=== PATIENT | male | born 1960 | race Caucasian/White ===

== ENCOUNTER 2020-03-06 09:43 | Outpatient (AMBR) | payer MEDICAID, SELFPAY ==
--- NOTE | 2020-02-24 14:06 | PT.ODAYNRPT ---
PT Outpatient Daily Note Date of Service: 02/24/20 OP Daily Note Visit Reasons: Cerebrovascular accident Outpatient Physical Therapy Treatment Date: 02/24/20 Subjective: Not much change since last visit. He states he is doing HEP of AAROM of L UE and moving the L ankle along with bridging. He is wearing L AFO. Objective: See F/S for therex Assessment: Pt has difficulty locking L knee into extension and may benefit from knee lockout brace to stretch HS and stand. More difficulty bridging today, likely due to not doing it much since last visit. Very limited L UE movement with slight FF and abd of shoulder. No active ROM of hand. Plan: Continue per POC Length of Time (minutes) of Treatment: 30 Minutes Office Procedures PT Procedures PT Date of Service: 02/24/20 Therapeutic Exercise 30 minutes: Yes CVA/TIA Most Recent Cardiac Tests: Chest X-Ray 10/08/19
--- NOTE | 2020-02-29 14:15 | PTNOTE_ITS ---
PT Outpatient Daily Note Date of Service: 02/29/20 OP Daily Note Visit Reasons: Cerebrovascular accident Outpatient Physical Therapy Treatment Date: 02/29/20 Subjective: Not much change since last visit. He states he is doing HEP. He is wearing L AFO. Objective: See F/S for therex Assessment: Pt is unable to lock L knee into extension and may benefit from knee lockout brace to stretch HS and stand. Very limited L UE movement with slight FF and abd of shoulder. No active ROM of hand and he would benefit from hand sp lint to hold digits into extension. He can stand and WB on R LE but not the L and requires mod assist to remain standing and grab bar. Plan: Continue per POC Length of Time (minutes) of Treatment: 30 Minutes Office Procedures PT Procedures PT Date of Service: 02/24/20 Therapeutic Exercise 30 minutes: Yes PT Procedures PT Date of Service: 02/29/20 Therapeutic Exercise 30 minutes: Yes CVA/TIA Most Recent Cardiac Tests: Chest X-Ray 10/08/19
--- NOTE | 2020-03-02 10:45 | PTNOTE_ITS ---
PT Outpatient Daily Note Date of Service: 03/02/20 OP Daily Note Visit Reasons: Cerebrovascular accident Outpatient Physical Therapy Treatment Date: 03/02/20 Subjective: Not much change since last visit. He states he is doing HEP. He is wearing L AFO. Objective: See F/S for therex Assessment: Pt is unable to lock L knee into extension and may benefit from knee lockout brace to stretch HS and stand. Very limited L UE movement with slight FF and abd of shoulder. No active ROM of hand and he would benefit from hand sp lint to hold digits into extension. He can stand and WB on R LE but not the L and requires mod assist to remain standing and grab bar. Plan: Continue per POC Length of Time (minutes) of Treatment: 30 Minutes Office Procedures PT Procedures PT Date of Service: 02/24/20 Therapeutic Exercise 30 minutes: Yes PT Procedures PT Date of Service: 03/02/20 Therapeutic Exercise 30 minutes: Yes PT Procedures PT Date of Service: 02/29/20 Therapeutic Exercise 30 minutes: Yes CVA/TIA Most Recent Cardiac Tests: Chest X-Ray 10/08/19
--- NOTE | 2020-03-06 19:42 | PTNOTE_ITS ---
PT Outpatient Daily Note Date of Service: 03/06/20 OP Daily Note Visit Reasons: Cerebrovascular accident Outpatient Physical Therapy Treatment Date: 03/06/20 Subjective: Not much change since last visit. He states he is doing HEP. He is wearing L AFO. Objective: See F/S for therex Assessment: Pt is unable to lock L knee into extension and may benefit from knee lockout brace to stretch HS and stand. Very limited L UE movement with slight FF and abd of shoulder. No active ROM of hand and he would benefit from hand sp lint to hold digits into extension. He can stand and WB on R LE but not the L and requires mod assist to remain standing and grab bar. Slow progress with functional goals. Plan: Continue per POC Length of Time (minutes) of Treatment: 30 Minutes Office Procedures PT Procedures PT Date of Service: 02/24/20 Therapeutic Exercise 30 minutes: Yes PT Procedures PT Date of Service: 03/02/20 Therapeutic Exercise 30 minutes: Yes PT Procedures PT Date of Service: 03/06/20 Therapeutic Exercise 30 minutes: Yes PT Procedures PT Date of Service: 02/29/20 Therapeutic Exercise 30 minutes: Yes CVA/TIA Most Recent Cardiac Tests: Chest X-Ray 10/08/19
--- NOTE | 2020-03-08 14:20 | PTNOTE_ITS ---
PT Outpatient Daily Note Date of Service: 03/08/20 OP Daily Note Visit Reasons: Cerebrovascular accident Outpatient Physical Therapy Treatment Date: 03/08/20 Subjective: Not much change since last visit. He states he is doing HEP. He is wearing L AFO. Objective: See F/S for therex Assessment: Pt is unable to lock L knee into extension and may benefit from knee lockout brace to stretch HS and stand. Very limited L UE movement with slight FF and abd of shoulder. No active ROM of hand and he would benefit from hand spl int to hold digits into extension. He can stand and WB on R LE but not the L and requires mod assist to remain standing and grab bar. Slow progress with functional goals but he was able to lift the L LE up better today transferring sit to supine. Plan: Continue per POC Length of Time (minutes) of Treatment: 30 Minutes Office Procedures PT Procedures PT Date of Service: 02/24/20 Therapeutic Exercise 30 minutes: Yes PT Procedures PT Date of Service: 03/02/20 Therapeutic Exercise 30 minutes: Yes PT Procedures PT Date of Service: 03/06/20 Therapeutic Exercise 30 minutes: Yes PT Procedures PT Date of Service: 03/08/20 Therapeutic Exercise 30 minutes: Yes PT Procedures PT Date of Service: 02/29/20 Therapeutic Exercise 30 minutes: Yes CVA/TIA Most Recent Cardiac Tests: Chest X-Ray 10/08/19
--- NOTE | 2020-03-13 10:39 | PT.ODAYNRPT ---
PT Outpatient Daily Note Date of Service: 03/13/20 OP Daily Note Visit Reasons: Cerebrovascular accident Outpatient Physical Therapy Treatment Date: 03/13/20 Subjective: Pt brings in knee extension lockout brace to try and L hand splint. He states he is doing HEP. He is wearing L AFO Objective: See F/S for therex Assessment: Pt is unable to lock L knee into extension and with knee lockout brace he can partially shift to L. Very limited L UE movement with slight FF and abd of shoulder. He is wearing hand splint to hold digits into extension. Slow progress with functional goals but he is able to lift the L LE up better transferring sit to supine. Plan: Continue per POC Length of Time (minutes) of Treatment: 30 Minutes Office Procedures PT Procedures PT Date of Service: 02/24/20 Therapeutic Exercise 30 minutes: Yes PT Procedures PT Date of Service: 03/02/20 Therapeutic Exercise 30 minutes: Yes PT Procedures PT Date of Service: 03/06/20 Therapeutic Exercise 30 minutes: Yes PT Procedures PT Date of Service: 03/08/20 Therapeutic Exercise 30 minutes: Yes PT Procedures PT Date of Service: 02/29/20 Therapeutic Exercise 30 minutes: Yes PT Procedures PT Date of Service: 03/13/20 Therapeutic Exercise 30 minutes: Yes CVA/TIA Most Recent Cardiac Tests: Chest X-Ray 10/08/19
--- NOTE | 2020-03-15 18:31 | PT.ODS1RPT ---
PT OP Progress/Discharge Note Date of Service: 03/15/20 Progress Note/DC Note Progress Note/Discharge Note: Progress Note Patient Information Visit Reasons: Cerebrovascular accident Medical Diagnosis: CVA with L hemiplegia Service Continue Service or Discharge: Continue Service Certification Date Certification Dates: 03/15/18 to 05/15/20 Status Subjective: Pt brings in knee extension lockout brace to try and L hand splint. He states he is doing HEP. He is wearing L AFO and wants to continued therapy in order to transfer and stand better. Objective: Transfer: Sit to stand with min/modAx1 Stand pivot with modAx1 to W/C Slide board from W/C to mat table with Maryann L knee ArOM: Extension:-60 deg Flexion: 80 deg with strap Hip strength: Adduction: 3+/5 Assessment: Pt has attended 09/02 Rx visits and made fair progress with therapy goals. He is able to lift L LE into bed with the R with Maryann. Pt is unable to lock L knee into extension and with knee lockout brace he can partially shift to L that has improved with knee extension lockout brace. Pt was able to pivot in standing with FWW and modAx2 to W/C. He requires modA to remain standing and avoid falling to the L since L UE doesn't help much. Very limited L UE movement with slight FF and abd of shoulder. He is wearing hand splint to hold digits into extension. Pt would benefit from continued therapy in order to improve transfers into and out of bed and from sit to stand and to W/C. Plan: Request additional visits x8 and extend POC for 2 months Office Procedures PT Procedures PT Date of Service: 02/24/20 Therapeutic Exercise 30 minutes: Yes PT Procedures PT Date of Service: 03/02/20 Therapeutic Exercise 30 minutes: Yes PT Procedures PT Date of Service: 03/06/20 Therapeutic Exercise 30 minutes: Yes PT Procedures PT Date of Service: 03/08/20 Therapeutic Exercise 30 minutes: Yes PT Procedures PT Date of Service: 03/15/20 Therapeutic Exercise 30 minutes: Yes PT Procedures PT Date of Service: 02/29/20 Therapeutic Exercise 30 minutes: Yes PT Procedures PT Date of Service: 03/13/20 Therapeutic Exercise 30 minutes: Yes CVA/TIA Most Recent Cardiac Tests: Chest X-Ray 10/08/19
== END 2020-03-21 23:59 | disposition home or self-care (01) ==
PROVIDERS: PCP Internal Medicine; Referring Provider Internal Medicine; Visit Provider Internal Medicine
DX: I69.354 Hemiplegia and hemiparesis following cerebral infarction affecting left non-dominant side (principal); M25.512 Pain in left shoulder; I10 Essential (primary) hypertension
CPT/HCPCS: 97110

== ENCOUNTER 2020-05-24 10:19 | Outpatient (AMBR) | payer MEDICAID, SELFPAY ==
--- NOTE | 2020-05-24 18:24 | PTNOTE_ITS ---
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 He states this will help him with community mobility as he is unable to ambulate following CVA. He is able to financial planning assistant parallel bars with L knee lock-out brace and modA but dragging the L foot. He is unable to actively move the L shoulder or UE or trashman the L hand. Caregiver is present and states she uses slide board to transfer pt. PMH: HTN, vitiligo, high cholesterol, OA B knees Pt goal: to get a power W/C to be somewhat mobile Objective See W/C evaluation Assessment Pt presentation consistent with referring Dx. Pt has L UE flaccidity and hemiplegia of L LE. Pt is high fall risk in standing and requires assist to not lose balance to the L and would benefit from a power W/C to improve HH and community mobility. He depends on caregiver to push manual W/C as he is unable due to L UE hemiplegia so a power W/C would reduce dependence on caregiver. He has cognitive and R sided coordination to control the chair. PT recommends he get a power W/C. Short Term and Nursing Home Goals Follow up with provider Treatment Plan Eval and D/C Certification Dates: 05/24/20 to 06/23/20 Office Procedures PT Procedures PT Date of Service: 05/24/20 OP PT Eval Mod Complex 30 minutes: Yes
== END 2020-06-21 23:59 | disposition home or self-care (01) ==
PROVIDERS: PCP Physician Assistant; Referring Provider Physician Assistant; Visit Provider Physician Assistant
DX: Z02.79 Encounter for issue of other medical certificate (principal); I10 Essential (primary) hypertension
CPT/HCPCS: 97162

== ENCOUNTER 2020-07-13 10:33 | Outpatient (AMBR) | payer MEDICAID, SELFPAY ==
--- NOTE | 2020-07-13 10:44 | PT.OIERPT ---
PT OP Initial Eval Patient Information Visit Reasons: cva Medical Diagnosis: I69.354 Treatment Dx #1: same Start of Care: 07/13/20 Date of Onset: 09/14/20 Initial Assessment Subjective Pt is 60 yr old male s/p CVA about last August presents to therapy in W/C. He was taken to [facility] and then to [facility] rehab for 2 weeks. He is unable to actively move the L shoulder or UE or conventional underwriter the L hand. Caregiver is present and states she uses slide board to transfer pt. Pt had gallbladder removed and left hospital June 22 and has been pretty inactive since then. PMH: HTN, vitiligo, high cholesterol, OA B knees Imaging: in EMR Pt goal: regain my body strength and walk with a cane or walker, be somewhat mobile Objective L knee AROM: PROM: Extension: -40 deg full Flexion: 90 deg 100 deg DF: -3 deg PF: 35 deg slowly Shoulder: FF: 40 deg L hip AROM: Flexion: 90 deg Strength is 3-/5 in all planes of motion of L LE and 2/5 L UE. Transfers: W/C to mat table with slide board and Maryann Sit<>stand with FWW and min/modA to avoid falling to R/L side Sit<>supine: Maryann for LE management Clonus: negative of L foot Tone assessment: hypotonic L UE/LE Assessment Pt presentation consistent with referring Dx. Pt has L UE flaccidity and hemiplegia of L LE. Pt is wearing an AFO and is able to stand with modA and is high fall risk and requires assist to not lose balance to the L. He has poor L LE extension and trunk extension strength which may limit standing and gait tolerance. Pt requires skilled therapy to learn HEP and to improve strength with transfers and has fair/poor rehab potential Short Term and Assisted Goals 1. Independent with HEP 2. Pt will transfer from supine to sit using logrolling technique with modified independence 3. Pt will transfer from sit to stand with hand support with minAx1 4. Improved L LE AROM into extension to -20 deg and flexion to 70 deg Treatment Plan 1. Manual therapy 2. Therex 3. Modalities as indicated, moist heat, ice, estim 4. neuromuscular reeducation Frequency and Duration 2x a week for 6 weeks Certification Dates: 07/13/20 to 10/11/20 Office Procedures PT Procedures PT Date of Service: 07/13/20 OP PT Eval Mod Complex 30 minutes: Yes
== END 2020-07-22 23:59 | disposition home or self-care (01) ==
PROVIDERS: PCP Physician Assistant; Referring Provider Physician Assistant; Visit Provider Physician Assistant
DX: G81.04 Flaccid hemiplegia affecting left nondominant side (principal); I10 Essential (primary) hypertension
CPT/HCPCS: 97162

== ENCOUNTER 2020-12-18 10:27 | Outpatient (AMBR) | payer MEDICAID, SELFPAY ==
--- NOTE | 2020-11-29 15:49 | PT.ODS1RPT ---
PT OP Progress/Discharge Note Date of Service: 11/29/20 Progress Note/DC Note Progress Note/Discharge Note: Progress Note Patient Information Visit Reasons: cva Service Continue Service or Discharge: Continue Service Status Subjective: Pt returns to therapy after waiting for insurance authorization since September and wants to walk with hemiwalker and strengthen LE's. Objective: See F/S for therex Assessment: Pt is advancing L LE better with less adduction than when he first started therapy. He can ambulate with hemiwalker in R hand with minAx1 for balance for about 20'. Plan: Continue per POC and extend POC dates from 10/11/20 to 01/09/21 Office Procedures PT Procedures PT Date of Service: 11/29/20 [facility] Initial 30 minutes: Yes
--- NOTE | 2020-12-05 18:46 | PT.ODAYNRPT ---
PT Outpatient Daily Note Date of Service: 12/05/20 OP Daily Note Visit Reasons: cva Outpatient Physical Therapy Treatment Date: 12/05/20 Subjective: Pt wants to walk with hemiwalker and strengthen LE's. Objective: See F/S for therex Assessment: Pt is advancing L LE better with less adduction than when he first started therapy. He can ambulate with hemiwalker in R hand with minAx1 for balance for about 20'. Plan: Continue per POC Length of Time (minutes) of Treatment: 30 Minutes Office Procedures PT Procedures PT Date of Service: 11/29/20 [facility] Initial 30 minutes: Yes PT Procedures PT Date of Service: 12/05/20 [facility] Initial 30 minutes: Yes
--- NOTE | 2020-12-18 12:04 | PT.ODAYNRPT ---
PT Outpatient Daily Note Date of Service: 12/18/20 OP Daily Note Visit Reasons: cva Outpatient Physical Therapy Treatment Date: 12/18/20 Subjective: pt came in with care support representative, it was her first time with him. pt came in with knee brace. his LUE in sling. Objective: see flow sheet. Assessment: pt is max A for SPT WC<>sci fit. pt's L foot not able to stay on the pedal without the straps. pt fatigued after STS. care support representative assisted with standing exercises. pt fatigued with side steps and only able to do 2 laps. needs max cuing for his foot placement. pt does not weight onto the LLE. with cuing he can weight shift. not able to stand tall and extend knees as they want to buckle. Plan: continue POC per PT. Length of Time (minutes) of Treatment: 30 Minutes Office Procedures PT Procedures PT Date of Service: 11/29/20 [facility] Initial 30 minutes: Yes PT Procedures PT Date of Service: 12/05/20 [facility] Initial 30 minutes: Yes PT Procedures PT Date of Service: 12/18/20 Therapeutic Exercise 30 minutes: Yes
== END 2020-12-20 23:59 | disposition home or self-care (01) ==
PROVIDERS: PCP Physician Assistant; Referring Provider Physician Assistant; Visit Provider Physician Assistant
DX: G81.04 Flaccid hemiplegia affecting left nondominant side (principal); I10 Essential (primary) hypertension; Z99.3 Dependence on wheelchair; I69.354 Hemiplegia and hemiparesis following cerebral infarction affecting left non-dominant side

== ENCOUNTER 2021-01-17 10:34 | Outpatient (AMBR) | payer MEDICAID, SELFPAY ==
--- NOTE | 2020-12-26 18:58 | PT.ODAYNRPT ---
PT Outpatient Daily Note Date of Service: 12/26/20 OP Daily Note Visit Reasons: cva Outpatient Physical Therapy Treatment Date: 12/26/20 Subjective: Same as last visit Objective: See F/S for therex Assessment: Pt able to ambulate with hemiwalker in R hand but falls fwd and backward with turning. Plan: Continue per POC Length of Time (minutes) of Treatment: 30 Minutes Office Procedures PT Procedures PT Date of Service: 12/26/20 [facility] Initial 30 minutes: Yes
--- NOTE | 2020-12-28 18:56 | PT.ODAYNRPT ---
PT Outpatient Daily Note Date of Service: 12/28/20 OP Daily Note Visit Reasons: cva Outpatient Physical Therapy Treatment Date: 12/28/20 Subjective: Same as last visit Objective: See F/S for therex Assessment: Pt able to ambulate with hemiwalker in R hand but falls fwd and backward with turning and requires modAx1 for standing balance. He is advancing the L LE better with less adduction than last time he did therapy. Plan: Continue per POC Length of Time (minutes) of Treatment: 30 Minutes Office Procedures PT Procedures PT Date of Service: 12/26/20 [facility] Initial 30 minutes: Yes PT Procedures PT Date of Service: 12/28/20 [facility] Initial 30 minutes: Yes
--- NOTE | 2021-01-01 14:44 | PT.ODAYNRPT ---
PT Outpatient Daily Note Date of Service: 01/01/21 OP Daily Note Visit Reasons: cva Outpatient Physical Therapy Treatment Date: 01/01/21 Subjective: He forgot his L AFO today Objective: See F/S for therex Assessment: Pt wasn't able to ambulate with hemiwalker today and lost balance to L but was caught by PT. Pt is high fall risk and requires mod/maxAx1 for standing balance. He is advancing the L LE better with less adduction when he wears AFO. Plan: Continue per POC Length of Time (minutes) of Treatment: 30 Minutes Office Procedures PT Procedures PT Date of Service: 12/26/20 [facility] Initial 30 minutes: Yes PT Procedures PT Date of Service: 12/28/20 [facility] Initial 30 minutes: Yes PT Procedures PT Date of Service: 01/01/21 [facility] Initial 30 minutes: Yes
--- NOTE | 2021-01-04 13:17 | PT.ODAYNRPT ---
PT Outpatient Daily Note Date of Service: 01/04/21 OP Daily Note Visit Reasons: cva Outpatient Physical Therapy Treatment Date: 01/04/21 Subjective: He brought his AFO today and wants to ambulate Objective: See F/S for therex Assessment: Pt was able to ambulate with hemiwalker today. Pt is high fall risk and requires mod/maxAx1 for standing balance. He is advancing the L LE better with less adduction when he wears AFO. He can ambulate sideways in the bars with hand support and modAx1 Plan: Continue per POC Length of Time (minutes) of Treatment: 30 Minutes Office Procedures PT Procedures PT Date of Service: 12/26/20 [facility] Initial 30 minutes: Yes PT Procedures PT Date of Service: 12/28/20 [facility] Initial 30 minutes: Yes PT Procedures PT Date of Service: 01/01/21 [facility] Initial 30 minutes: Yes PT Procedures PT Date of Service: 01/04/21 [facility] Initial 30 minutes: Yes
--- NOTE | 2021-01-09 13:30 | PT.ODAYNRPT ---
PT Outpatient Daily Note Date of Service: 01/09/21 OP Daily Note Visit Reasons: cva Outpatient Physical Therapy Treatment Date: 01/09/21 Subjective: He brought his AFO today and wants to ambulate Objective: See F/S for therex Assessment: Pt was able to ambulate with hemiwalker today. Pt is high fall risk and requires mod/maxAx1 for standing balance to not fall to the left. He is advancing the L LE better with less adduction when he wears AFO. He can ambulate sideways in the bars with hand support and modAx1 but doesn't trust the L LE and has low stance time. Plan: Continue per POC Length of Time (minutes) of Treatment: 30 Minutes Office Procedures PT Procedures PT Date of Service: 12/26/20 [facility] Initial 30 minutes: Yes PT Procedures PT Date of Service: 12/28/20 [facility] Initial 30 minutes: Yes PT Procedures PT Date of Service: 01/01/21 [facility] Initial 30 minutes: Yes PT Procedures PT Date of Service: 01/04/21 [facility] Initial 30 minutes: Yes PT Procedures PT Date of Service: 01/09/21 [facility] Initial 30 minutes: Yes
--- NOTE | 2021-01-11 14:02 | PT.ODAYNRPT ---
PT Outpatient Daily Note Date of Service: 01/11/21 OP Daily Note Visit Reasons: cva Outpatient Physical Therapy Treatment Date: 01/11/21 Subjective: He brought his AFO today and wants to ambulate Objective: See F/S for therex Assessment: Pt was able to ambulate with hemiwalker today. Pt is high fall risk and requires mod/maxAx1 for standing balance to not fall to the left after he stands. Once standing, he requires CGA/minAx1. He is advancing the L LE better with less adduction when he wears AFO. He can ambulate sideways in the bars with hand support and modAx1 but doesn't trust the L LE and has low stance time. Plan: Continue per POC Length of Time (minutes) of Treatment: 30 Minutes Office Procedures PT Procedures PT Date of Service: 12/26/20 [facility] Initial 30 minutes: Yes PT Procedures PT Date of Service: 12/28/20 [facility] Initial 30 minutes: Yes PT Procedures PT Date of Service: 01/01/21 [facility] Initial 30 minutes: Yes PT Procedures PT Date of Service: 01/04/21 [facility] Initial 30 minutes: Yes PT Procedures PT Date of Service: 01/09/21 [facility] Initial 30 minutes: Yes PT Procedures PT Date of Service: 01/11/21 Therapeutic Exercise 30 minutes: Yes
--- NOTE | 2021-01-17 18:39 | PT.ODAYNRPT ---
PT Outpatient Daily Note Date of Service: 01/17/21 OP Daily Note Visit Reasons: cva Outpatient Physical Therapy Treatment Date: 01/17/21 Subjective: He brought his AFO today and wants to ambulate Objective: See F/S for therex Assessment: Pt was able to ambulate with hemiwalker today. Pt is high fall risk and requires mod/maxAx1 for standing balance to not fall to the left after he stands. Once standing, he requires CGA/minAx1. He is advancing the L LE better with less adduction when he wears AFO. He can ambulate sideways in the bars with hand support and modAx1 but doesn't trust the L LE and has low stance time. Plan: Continue per POC Length of Time (minutes) of Treatment: 30 Minutes Office Procedures PT Procedures PT Date of Service: 12/26/20 [facility] Initial 30 minutes: Yes PT Procedures PT Date of Service: 01/17/21 [facility] Initial 30 minutes: Yes PT Procedures PT Date of Service: 12/28/20 [facility] Initial 30 minutes: Yes PT Procedures PT Date of Service: 01/01/21 [facility] Initial 30 minutes: Yes PT Procedures PT Date of Service: 01/04/21 [facility] Initial 30 minutes: Yes PT Procedures PT Date of Service: 01/09/21 [facility] Initial 30 minutes: Yes PT Procedures PT Date of Service: 01/11/21 [facility] Initial 30 minutes: Yes
== END 2021-01-19 23:59 | disposition home or self-care (01) ==
PROVIDERS: PCP Physician Assistant; Referring Provider Physician Assistant; Visit Provider Physician Assistant
DX: I69.354 Hemiplegia and hemiparesis following cerebral infarction affecting left non-dominant side (principal); I10 Essential (primary) hypertension

== ENCOUNTER → 2024-09-30 | Outpatient (CLI) | payer MEDICARE, MEDICAID, SELFPAY ==
--- NOTE | 2024-09-30 10:05 | XR_ITS ---
Examination: AP lateral chest 2 views TECHNIQUE: Upright AP lateral chest 2 views Exam date and time: September 30, 2024 1031 hours Comparison May 19, 2024 INDICATIONS: Coughing shortness of breath beginning one month ago FINDINGS: Subsegmental atelectasis left base Normal heart size Ectatic thoracic aorta On the lateral view mild infiltrate in the posterior basal segment left lower lobe IMPRESSION: Mild pneumonia posterior basal segment left lower lobe
== END | disposition home or self-care (01) ==
LOC: CDIM 09:43
PROVIDERS: PCP Physician Assistant; Referring Provider Physician Assistant; Visit Provider Physician Assistant
DX: J18.9 Pneumonia, unspecified organism (principal); R05.3 Chronic cough
CPT/HCPCS: 71046

== ENCOUNTER → 2024-11-03 | Outpatient (CLI) | payer MEDICARE, MEDICAID, SELFPAY ==
--- NOTE | 2024-11-03 10:50 | XR_ITS ---
Examination: AP lateral chest 2 views TECHNIQUE: Upright AP lateral chest 2 views Exam date and time: November 03, 2024 1120 hours Comparison September 30, 2024 INDICATIONS: Coughing congestion 2 months. FINDINGS: Mild pneumonia left base Normal heart size Prominent osteopenia IMPRESSION: Mild pneumonia left base
== END | disposition home or self-care (01) ==
LOC: CDIM 10:43
PROVIDERS: Referring Provider Physician Assistant; Visit Provider Physician Assistant
DX: J18.9 Pneumonia, unspecified organism (principal)
CPT/HCPCS: 71046

== ENCOUNTER → 2024-11-29 | Outpatient (CLI) | payer MEDICARE, MEDICAID, SELFPAY ==
--- NOTE | 2024-11-29 | XR_ITS ---
Examination: AP lateral chest 2 views Technique: Upright AP lateral chest 2 views Exam date and time: 2024 1132 hrs. Comparison November 03, 2024 Indications: History left lung pneumonia. Findings: Bibasilar atelectasis No current pneumonia Normal heart size Impression: Bibasilar subsegmental atelectasis, no current pneumonia
== END | disposition home or self-care (01) ==
PROVIDERS: PCP Physician Assistant; Referring Provider Physician Assistant; Visit Provider Physician Assistant
DX: J98.11 Atelectasis (principal)
CPT/HCPCS: 71046

== ENCOUNTER 2025-05-24 14:11 | Outpatient (AMB) | payer MEDICARE, MEDICAID, SELFPAY ==
--- NOTE | 2025-05-24 14:21 | ORTHONT_ITS ---
Vital signs 05/24/25 14:28 Height 1.7 m Height Method Stated Weight 67.132 kg Weight Measurement Method Stated by Patient BMI 23.1 BP 126/83 Blood Pressure Source Automatic Cuff Blood Pressure Location Left Upper Arm Position Sitting Respiration 18 Pulse 75 Pulse Source Monitor Temp 98.2 F Temp Source Temporal Artery Scan Pulse Oximetry (%) 93 L Oxygen Delivery Method Room Air Med/Allergies Allergies & Medications Allergies ciprofloxacin (From Cipro) Allergy (Severe, Verified 05/24/25 14:29) Rash Medication Reconciliation atorvastatin 80 mg tablet 80 mg PO HS #30 tabs 06/16/20 [Rx Confirmed 05/24/25] aspirin 81 mg tablet,delayed release 81 mg PO QDAY 07/26/20 [History Confirmed 05/24/25] levetiracetam 250 mg tablet (Keppra) 250 mg PO Q12H #60 tabs 07/26/20 [Rx Confirmed 05/24/25] lisinopril 5 mg tablet 5 mg PO QDAY 07/26/20 [History Confirmed 05/24/25] lorazepam 0.5 mg tablet 0.5 mg PO QDAY 07/26/20 [History Confirmed 05/24/25] Exam Exam Breathing is nonlabored. Patient has a normal mood and affect. Bilateral extremities were evaluated and demonstrates sensation intact to light touch. Palpable pedal pulses are present. No significant edema is present. Bilateral hips were examined. The patient has no pain with log roll of the hips. Internal rotation to 30 degrees and external rotation to 30 degrees is painless. Negative FADIR. Left knee was examined today. The left knee is contracted with range of motion from 30 to 45 degrees. Quad strength is weak The right knee was also examined. The right knee is in valgus alignment. Range of motion from 0 to 90 degrees. Knee is stable to varus and valgus as well as AP translation with <5mm. Patient has a negative McMurrays. There is no pain with patellofemoral compression and no crepitus noted. knee is tender to palpation laterally Nonweightbearing x-rays as the patient And demonstrate severe joint space narrowing laterally Assessment and Plan Problem List (1) Arthritis of knee, right: Status: Acute Plan: Patient is a 64-year-old male with right knee pain and right knee neuritis. We discussed treatment options. He is not a great candidate surgery given his prior stroke and hemiparesis on the left. We discussed nonoperative treatment clued injections on the right Recommend knee cortisone injection as patient would like to proceed with conservative treatment at this time. The risks and benefits of the procedure were reviewed with the patient and patient gave verbal consent to continue with the procedure. Procedure: performed by Dr. Velázquez Using sterile technique the Right knee was thoroughly prepped with alcohol, and approximately 1 cc of Depo-Medrol 80mg/mL and 4 cc of 0.2% ropivacaine was injected without resistance into the medial tibial femoral joint space. The patient tolerated the procedure. Advanced Care Planning Discussion Advance care planning discussed with:: patient Office Procedures GNS Level of Care Nursing/Assessment Patient Status: Initial/New Patient Nursing Assessment/Reassesment: Medication Reconciliation, Update PMH in EMR and Vital Signs Coordination of Care: Complex Care and Chronic Disease 1-5, Education Complex Pt/Fam, Consent,records obtained, informed consent, 1 Ins Authorization, Lab and Imaging orders, Results/Orders obtained and Staff clarify orders New Patient Charge New Patient Point Assignment: 1124 New Patient Point Charge: STOVE FITTER Level 4 ([id number]) Surgical Proc/IM SQ injection Major Surgical Procedure: Yes (RIGHT KNEE INJECTION) Medication Given Medication Given Medication Given: Yes Documented Dose Given: 1 Route: Infiitration Medication Given Medication Given Medication Given: Yes Documented Dose Given: 4 Route: Infiitration Office Meds methylprednisolone acetate 80 mg/mL suspension for injection Performing Provider: Suresh Velázquez MD Performing Location: [facility] Administered by: Suresh Velázquez MD on 05/24/25 14:59 Dose Route Admin Location Dispensed Lot Number Expiration Date Pack age [facility] [employer] 80 mg intra-articular 1 mL [id number] 02/18/27 [address]-7 [id number] [employer] ropivacaine (PF) 2 mg/mL (0.2 %) injection solution Performing Provider: Suresh Velázquez MD Performing Location: [facility] Administered by: Meredith Mahoney on 05/24/25 14:59 Dose Route Admin Location Dispensed Lot Number Expiration Date Pack age [facility] [employer] 20 mL Infiltration 20 mL [id number] 10/21/27 59386-682-40 [id number] [facility] Intake Visit Data Collection New Patient or Established: New Patient (never been to [facility]) Reason for Visit:: BILATERAL KNEE PAIN Seen by Clinical Staff ONLY (RN/MA): No Corporate Manager Required: No PCP or OBGYN visit in last 3 months: Yes Hx Now: No Do You Feel Safe at Home: Yes Authorities Contacted: N/A Questionairres Past Medical History Past Medical History Have you ever been diagnosed with any of the following: Neurological Problems Cerebrovascular Accident (CVA): Yes Seizures: Yes Cardiology Problems Hypercholesterolemia: Yes Congestive Heart Failure: No Hypertension: Yes Respiratory Problems Chronic Obstructive Pulmonary Disease (COPD): No Asthma: No Stomache/Intestinal Problems Hepatitis: No Gall Bladder Disease: Yes Genital/Urinary Problems Renal Disease: No Kidney Stones: Yes Reproductive Problems Fibroids: No Endocrine Problems Diabetes Mellitus Type 1: No Diabetes Mellitus Type 2: No Blood Problems Sickle Cell Disease: No Psychologic Problems Anxiety: Yes Other Problems Hospitalization: Yes Down Syndrome: No Developmental Delay: No Shingles: No Falls: Yes Blood Transfusions: No Blood Transfusion Reaction: No Anesthesia Reactions: No Organ Transplant: No Chemotherapy: No Radiation Therapy: No Hyperbaric Therapy: No MRSA: No VRSA: No Vancomycin-Resistant Enterococci: No Human Immunodeficiency Virus (HIV): No Chicken Pox: No Measles: No Mumps: No Rubella (Maced[place] Measles): No Pertussis: No Clostridium Difficile: No Cancer: No Subjective Visit Visit for: new patient and knee Immunization / Flu Flu Vaccine in the Last 12 Months: Yes Flu Vaccine Exclusion Criteria: Already Received History of Present Illness Chief complaint: BILATERAL KNEE PAIN Date of injury / onset of symptoms: 8 YEARS Tej is a pleasant 64-year-old male with right knee pain. On the left side he had a stroke and has paralysis on the left. His left knee is extremely stiff and he is in a wheelchair. He has been working with physical therapy for the last 3 years. His left knee is extremely contracted Personal History Occupation: DISABLED Red flag PMH: none BMI Counceling provided: No Pain Pain level (0-10): 10 Pain location: inside (medial), outside (lateral), anterior and posterior Pain quality: burning and tingling Associated signs & symptoms: stiffness Ambulatory data Ambulatory device: other (specify) (WHEELCHAIR) Treatments Number of previous injections: 1 Improvement with previous injections: No Improvement with PT: Yes Improvement with NSAIDS: no Review of Systems Review of Systems: All systems negative unless otherwise noted in HPI.
[2025-05-24 14:28] VITALS: BP 126/83; PULSE 75; RESP 18; TEMP 36.8; O2SAT 93; BMI 23.1
== END 2025-05-24 15:03 | disposition home or self-care (01) ==
LOC: HODSRG 14:11
PROVIDERS: PCP Physician Assistant; Referring Provider Physician Assistant; Supervising Provider Orthopaedic Surgery Adult Reconstructive Orthopaedic Surgery; Visit Provider Orthopaedic Surgery Adult Reconstructive Orthopaedic Surgery
DX: M17.11 Unilateral primary osteoarthritis, right knee (principal); M25.561 Pain in right knee; M79.2 Neuralgia and neuritis, unspecified; I10 Essential (primary) hypertension; E78.00 Pure hypercholesterolemia, unspecified; Z86.73 Personal history of transient ischemic attack (TIA), and cerebral infarction without residual deficits; G81.94 Hemiplegia, unspecified affecting left nondominant side
CPT/HCPCS: 20610; 99204; J1010; J2795; G0463

== ENCOUNTER → 2025-08-26 | Outpatient (CLI) | payer MEDICARE, MEDICAID, SELFPAY ==
--- NOTE | 2025-08-26 | XR_ITS ---
Examination: Shoulder, right, 3 views Technique: Shoulder AP internal rotation, AP external rotation, Y view shoulder, 3 views Exam date and time : August 26, 2025, 1133 hours INDICATIONS: Right shoulder pain 3 weeks FINDINGS: Nonstandard views Moderate narrowing glenohumeral joint No fracture Decreased distance between the humeral head in the acromion Moderate osteoarthritis acromioclavicular joint IMPRESSION: No fracture Moderate narrowing glenohumeral joint Recommend axial view of the shoulder follow-up
== END | disposition home or self-care (01) ==
LOC: CDIM 11:01
PROVIDERS: PCP Physician Assistant; Referring Provider Physician Assistant; Visit Provider Physician Assistant
DX: M25.811 Other specified joint disorders, right shoulder (principal)
CPT/HCPCS: 73030

== ENCOUNTER → 2025-09-07 | Outpatient (CLI) | payer MEDICARE, MEDICAID, SELFPAY ==
--- NOTE | 2025-09-07 16:30 | XR_ITS ---
Examination: CT lung low dose screening, without contrast. 2-D sagittal reconstructions. 2-D coronal reconstructions. 3-D reconstructions. Date and time of exam: August, 1631 hours INDICATIONS: Encounter for screening for malignant neoplasm of lung field, history chronic shortness of breath smoking history years CTDI: vol (mGy): 12.1 DLP: (mGycm): 435 Technique: Multiple 1.25 mm axial sections of the lung low dose screening without contrast have been obtained. 2-D sagittal and coronal reconstructions have been obtained. 3-D reconstructions have been obtained. Low dose protocols were performed. One or more of the following dose reduction techniques were used; automated exposure control, adjustment of the mA and/or KV according to patient size, use of iterative reconstruction technique. Findings: Thoracic aortic calcification no aneurysmal dilatation Pulmonary artery segments are not enlarged Mild calcification left anterior descending coronary artery Atelectasis in the lower lung zones 10 mm pulmonary nodule left lower lobe axial image 186 Negative for hepatomegaly Gallbladder not visualized No extrahepatic biliary tract dilatation No pancreatic mass Moderate osteopenia IMPRESSION: 10 mm pulmonary nodule left lower lobe, with the studies baseline recommend 6-month follow-up CT chest without contrast
== END | disposition home or self-care (01) ==
LOC: CCTX 16:13
PROVIDERS: Referring Provider Physician Assistant; Visit Provider Physician Assistant
DX: Z12.2 Encounter for screening for malignant neoplasm of respiratory organs (principal); R91.1 Solitary pulmonary nodule; Z87.891 Personal history of nicotine dependence
CPT/HCPCS: 71271